=== PATIENT | female | born 1950 | race Caucasian/White ===

== ENCOUNTER 2019-07-23 00:42 | Inpatient (IN) | payer OTHER ==
[~2019-07-23] VITALS: Ht 157.5 cm; Wt 66.5 kg
[2019-07-23 00:46] VITALS: Ht 157.5 cm; Wt 66.5 kg
--- NOTE | 2019-07-23 01:02 | NUR ---
PT PRESENTS TO THE ED TODAY WITH C/C OF SOB. PT REPORTS THAT SHE'S BEEN "SICK" X1 WEEK, AND WOKE UP OUT OF HER SLEEP AROUND MIDNIGHT FEELING "VERY SHORT OF BREATH." PT REPORTS PRODUCTIVE COUGH WITH CLEAR, AND OCCASIONAL YELLOW MUCUS. PT DENIES ANY CP. SKIN IS WARM AND PINK. PT IS AWAKE AND ALERT, RESP E/U, SPEAKING IN CLEAR SENTENCES, PT CHANGED INTO GOWN AND PLACED ON MONITOR. WILL CONTINUE TO MONITOR. AWAITING MSE.
--- NOTE | 2019-07-23 01:07 | NUR ---
PT NOTED TO BE SATTING AROUND 91-92% ON RA. CHECKED ON PT. PT SITTING IN GURNEY, MOVING AROUND, TALKING TO DAUGHTER. PT SITTING STILL, GOOD WAVEFORM, STILL SATTING AROUND 91-92%. PLACED ON 2L VIA NC.
[2019-07-23 01:53] LABS: BASOPHIL % 0.8 % (0-2); PLATELET COUNT 329 x10^3mcL (130-400); RED CELL DISTRIBUTION WIDTH 13.3 % (11.5-14.5)
[2019-07-23 01:56] LABS: CALCIUM 8.6 mg/dL (8.5-10.1); CARBON DIOXIDE 21.8 mmol/L (21-32); CHLORIDE SERUM 101 mmol/L (98-107); CREATININE SERUM 0.8 mg/dL (0.6-1.0); GFR1 > 60 mL/min; GLUCOSE SERUM 159 mg/dL (74-106); POTASSIUM SERUM 3.6 mmol/L (3.5-5.1); SODIUM SERUM 136 mmol/L (136-145)
[2019-07-23 02:01] LABS: ALBUMIN 3.7 g/dL (3.4-5.0); ALKALINE PHOSPHATASE 113 U/L (46-116); ALT/SGPT 35 U/L (14-59); AST/SGOT 25 U/L (15-37); BILIRUBIN TOTAL 0.34 mg/dL (0.20-1.00); MAGNESIUM 1.9 mg/dL (1.8-2.4); TOTAL PROTEIN, SERUM 7.9 g/dL (6.4-8.2)
[2019-07-23 02:44] LABS: UA SPECIFIC GRAVITY 1.015 (1.005-1.035); microscopic required? YES; urine erythrocyte TRACE (NEGATIVE)
--- NOTE | 2019-07-23 04:00 | NUR ---
PT AMBULATING TO RESTROOM WITH STEADY GAIT AT THIS TIME
[2019-07-23 04:34] LABS: AMPHETAMINE QUAL UR NONE DETECTED (See below)
[2019-07-23 04:36] LABS: T3 TOTAL 1.09 ng/mL
[2019-07-23 04:44] LABS: CHOLESTEROL/HDL RATIO 4.8; FREE T4 1.11 ng/dL (0.76-1.46); FREE THYROXINE INDEX 3.1 ug/dL (1.4-4.5); T4(THYROXINE) 8.9 ug/dL (4.7-13.3)
--- NOTE | 2019-07-23 04:45 | NUR ---
REPORT GIVEN TO KYMBERLY FU. ALL QUESTIONS AND CONCERNS ADDRESSED AT THIS TIME
[2019-07-23 05:25] VITALS: BP 115/54
--- NOTE | 2019-07-23 05:34 | NUR ---
RECEIVED FROM ER, TRANSPORTED VIA [facility], AWAKE AND ALERT, ORIENTED TO NAME, PLACE, TIME AND SITUATION. SPEECH CLEAR AND APPROPRIATE. DENIES HAVING HEADACHE, CHEST PAIN, BACK PAIN, NAUSEA OR SHORTNESS OF BREATH AT THIS TIME. BREATHING EVEN AND UNLABORED ON 2LPM OF O2 VIA NC. SINUS RHYTHM WITH RIGHT BUNDLE BRANCH BLOCK NOTED ON TELE #34. SALINE LOCK TO LEFT FOREARM. INSTRUCTED ON USE OF CALL LIGHT TO CALL FOR ASSISTANCE, PLACED WITHIN EASY REACH. PT WAS ACCOMPANIED BY HER DAUGHTER.
--- NOTE | 2019-07-23 06:35 | NUR ---
EYES CLOSED, BREATHING EVEN AND UNLABORED ON 2LPM OF O2 VIA NC. CALL LIGHT WITHIN EASY REACH. REMAINS SINUS RHYTHM W/ RIGHT BUNDLE BRANCH BLOCK ON TELE, HR 77/MIN.
--- NOTE | 2019-07-23 07:08 | NUR ---
EYES CLOSED, BREATHING EVEN AND UNLABORED ON 2LPM OF O2 VIA NC. IN NO ACUTE DISTRESS. ENDORSED TO NURSE ERVIN
--- NOTE | 2019-07-23 07:20 | NUR ---
RECEIVED PT. IN BED A/A/O X3. NO SOB, NO N/V NOTED. PT. DENIES ANY PAIN AT THIS TIME. IV SITE NOTED TO [facility]. SCD TO BLE MAINTAINED. BED IN LOW POS., CALL LIGHT WITHIN REACH. SIDE RAILS UP X3.
[2019-07-23 08:37] LABS: BASOPHIL % 1.1 % (0-2); PLATELET COUNT 251 x10^3mcL (130-400); RED CELL DISTRIBUTION WIDTH 13.4 % (11.5-14.5)
[2019-07-23 08:40] LABS: CALCIUM 8.3 mg/dL (8.5-10.1); CARBON DIOXIDE 26.2 mmol/L (21-32); CHLORIDE SERUM 98 mmol/L (98-107); CREATININE SERUM 0.6 mg/dL (0.6-1.0); GFR1 > 60 mL/min; GLUCOSE SERUM 111 mg/dL (74-106); MAGNESIUM 1.7 mg/dL (1.8-2.4); PHOSPHOROUS 4.3 mg/dL (2.5-4.9); POTASSIUM SERUM 4.1 mmol/L (3.5-5.1); SODIUM SERUM 133 mmol/L (136-145)
[2019-07-23 08:41] VITALS: BP 116/64
[2019-07-23 14:00] VITALS: BP 116/56
--- NOTE | 2019-07-23 14:40 | NUR ---
CALLED AND REPORTED TROPONIN LEVEL (1.643) TO DR. FORREST. NO FURTHER ORDER RECEIVED AT THIS TIME.
[2019-07-23 17:33] VITALS: BP 112/54
--- NOTE | 2019-07-23 17:55 | NUR ---
REMAINS IN STABLE CONDITION AT THIS TIME. WILL CONTINUE TO MONITOR.
--- NOTE | 2019-07-23 19:30 | NUR ---
RECEIVED PT RESTING IN BED, FAMILY AT BEDSIDE. PT AOX4, REPORTING INTERMITTENT CANALES, WILL MEDICATE PER ORDER. TELE # 34 ST, DENIES CP AT THIS TIME. PT REPORTS SOB W/ EXERTION, ELEVATED TROPS, LATEST= 1.643, PT ON LOVENOX 40MG SQ. 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 RESP EVEN AND UNLABORED ON AND OFF 2LNC. PT USES O2 WHEN FEELING SOB ONLY. PT DENIES O2 AT HOME. PT ABD SOFT, FLAT, DENIES PAIN. VOIDS FREELY. BRP. AMB. SKIN INTACT. IV SITE TO THE LFA, SALINE LOCKED AT THIS TIME. PT ON LASIX 40 IVP. ALL COMFORT AND SAFETY MEASURES PROVIDED FOR, CALL LIGHT WITHIN REACH, BED IN LOWEST POSITION, WILL CONTINUE TO MONITOR.
[2019-07-23 21:16] VITALS: BP 112/55
[2019-07-24 05:03] VITALS: BP 111/59
--- NOTE | 2019-07-24 05:10 | NUR ---
PT RESTED IN INTERVALS DURING SHIFT, DENIES C/O CHECT PAIN DURING SHIFT. PT REMAINS AOX4, DENIES CANALES/DIZZINESS THIS AM. IV SITE REMAINS PATENT TO [facility], SALINE LOCKED. ALL COMFORT AND SAFETY MEASURES PROVIDED FOR, CALL LIGHT WITHIN REACH, BED INLOWEST POSITION, WILL CONTINUE TO MONITOR.
[2019-07-24 07:00] LABS: BASOPHIL % 0.5 % (0-2); PLATELET COUNT 260 x10^3mcL (130-400); RED CELL DISTRIBUTION WIDTH 13.1 % (11.5-14.5)
[2019-07-24 07:04] LABS: CALCIUM 8.7 mg/dL (8.5-10.1); CARBON DIOXIDE 28.8 mmol/L (21-32); CHLORIDE SERUM 100 mmol/L (98-107); CREATININE SERUM 0.7 mg/dL (0.6-1.0); GFR1 > 60 mL/min; GLUCOSE SERUM 106 mg/dL (74-106); MAGNESIUM 2.2 mg/dL (1.8-2.4); PHOSPHOROUS 4.1 mg/dL (2.5-4.9); SODIUM SERUM 134 mmol/L (136-145)
--- NOTE | 2019-07-24 07:10 | NUR ---
RECEIVED PATIENT AWAKE/ALERT IN BED NO DISTRESS NOTED, DENIES CHEST PAIN. TELE #34 SR, BBB AND HR 70 NOTED. IV TO LFA INTACT AND SL NOTED. NO ERYTHEMA NOTED. POC DISCUSS. CALL LIGHT WITHIN REACH.
--- NOTE | 2019-07-24 09:20 | NUR ---
PATIENT WATCHING TV SHOWS, NO COMPLAIN. ALL DUE MEDS ADMINISTERED, PATIENT TOLERATED. LOVENOX INJECTED TO LLQ. NEEDS MET. CONT TO MONITOR.
[2019-07-24 09:24] VITALS: BP 113/62
[2019-07-24 13:36] VITALS: BP 106/54
--- NOTE | 2019-07-24 15:38 | NUR ---
PATIENT SAT UP IN BED NO COMPLAIN, DR. SANCHEZ SEEN PATIENT WITH NEW MEDS ORDERS. NEEDS MET. CONT TO MONITOR.
--- NOTE | 2019-07-24 16:27 | NUR ---
PATIENT RESTING IN BED WATCHING TV, NO C/O PAIN. LASIX AND COREG ADMINISTERED. IV TO LFA INTACT AND PATENT. NO ERYTHEMA NOTED. NEEDS MET. CONT TO MONITOR.
[2019-07-24 17:05] VITALS: BP 103/53
--- NOTE | 2019-07-24 18:44 | NUR ---
PATIENT RESTING IN BED AWAKE/ALERT, NO C/O PAIN. NEEDS ET. CONT TO MONITOR.
[2019-07-24 20:36] VITALS: BP 93/59
[2019-07-24 20:46] VITALS: BP 99/47
[2019-07-25 05:32] VITALS: BP 126/63
--- NOTE | 2019-07-25 07:20 | NUR ---
PT IS AAOX4. TELE [address] READING NSR WITH BBB. PT DENIES C/P AND PRESSURE AT THIS TIME. O2 N/C HAS BEEN REMOVED TO ASSESS HOW PT TOLERATES R/A. NO SOB OR RESP DISTRESS AT THIS TIME. O2 SAT 94%. SKIN CDI. NO EDEMA. IV CAHT N/S LOCKED TO LFA. SITE WNL. NO S/S OF INFECTION NOTED. CALL LIGHT WITHIN REACH. BED IN LOWEST POSITION. WILL CONTINUE TO MONITOR.
[2019-07-25 07:21] VITALS: BP 116/58
--- NOTE | 2019-07-25 09:05 | NUR ---
EUGENIA GERMAN NP MET WITH PT AND DISCUSSED POC. PT IS TO BE EVALUATED BY DR. SANCHEZ. THEN DISCHARGE WILL BE DECIDED. PT AGREED WITH POC.
--- NOTE | 2019-07-25 09:26 | NUR ---
B/P 116/58, HR 69. PT OFF N/C AT THIS TIME. WILL CONTINUE TO MONITOR RESPIRATORY STATUS. SCHEDULED MEDS GIVEN AND TOLERATED WELL. PT DENIES C/P, PRESSURE AND PALPITATIONS. CALL LIGHT WITHIN REACH.
[2019-07-25 11:30] VITALS: BP 98/51
--- NOTE | 2019-07-25 11:30 | NUR ---
PT UP AMBULATING UNIT 3 TIMES ON R/A. O2 ST 96% ON R/A. RESP EVEN AND UNLABORED. NO SOB. PT BACK IN BED. DENIES PAIN. CALL LIGHT WITHIN REACH.
--- NOTE | 2019-07-25 13:45 | NUR ---
PT SITTING UP AT BEDSIDE VISITING WITH DAUGHTER. DENIES C/P AND DISCOMFORT. RESP EVEN AND UNLABORED. TOLERATING R/A AT 02 SAT 95%.
[2019-07-25 15:18] VITALS: BP 105/61
--- NOTE | 2019-07-25 16:24 | NUR ---
PT IS SITTING UP AT BEDSIDE. RESP EVEN AND UNLABORED. NO RESP DISTRESS NOTED. B/P 105/61 (71), 72. DENIES C/P AND PRESSURE. CALL LIGHT WITHIN REACH.
--- NOTE | 2019-07-25 18:11 | NUR ---
PT HAD 3O SECOND RUN OF VTACH. PT STATES SHE WAS WALKING IN HALLWAY AND DID NOT FEEL ANYTHING. REPORTED EPISODE TO DR. SANCHEZ, HE STATED THAT WE NEED TO CONTINUE TO MONITOR PT ON TELE. NO NEW ORDERS. PT MADE AWARE. PT IS AAOX4. RESP EVEN AND UNLABORED. TELE [address] READING NSR WITH BBB AT THIS TIME. IV CATH TO LFA INTACT, SITE WNL, COVERED WITH CDI OCCLUSIVE DRESSING. NO S/S OF INFECTION OR INFILTRATION. PT DENIES PAIN. CALL LIGHT WITHIN REACH. BED IN LOW POSITION. WILL ENDORSE ALL CARE TO NOC RN.
--- NOTE | 2019-07-25 19:15 | NUR ---
PT RECEIVED A/O X4, ABLE TO MAKE NEEDS KNOWN. TELE #34, DENIES ANY CP/PRESSURE. PULSES PALPABLE, NO EDEMA PRESENT. BREATHING IS EVEN AND UNLABORED ON RA, NO RESP DISTRESS NOTED. ABD SOFT AND NONDISTENDED, DENIES N/V. VOIDS FREELY, BRP. AMBULATORY W/ STEADY GAIT. SKIN IS WARM AND DRY, INTACT. PT DENIES HAVING ANY PAIN AT THIS TIME. SL TO LFA, INTACT. NO ACUTE DISTRESS NOTED. BED IN LOWEST SETTING, SIDE RAILS UP X2, CALL LIGHT WITHIN REACH. WILL CONT TO MONITOR.
[2019-07-25 21:37] VITALS: BP 138/45
--- NOTE | 2019-07-26 05:43 | NUR ---
PT SLEPT WELL THROUGHOUT THE EVENING. BREATHING IS EVEN AND UNLABORED, NO RESP DISTRESS NOTED. PT DENIES HAVING ANY PAIN AT THIS TIME. SL TO LFA INTACT. NO ACUTE CHANGES ENCOUNTERED DURING SHIFT. PT COMPLIANT WITH NURSING CARE. ALL NEEDS MET AND ANTICIPTED. CALL LIGHT WITHIN REACH. WILL ENDORSE CARE TO AM NURSE.
[2019-07-26 06:11] VITALS: BP 119/55
[2019-07-26 06:45] LABS: CALCIUM 8.4 mg/dL (8.5-10.1); CARBON DIOXIDE 27.8 mmol/L (21-32); CHLORIDE SERUM 97 mmol/L (98-107); CREATININE SERUM 0.7 mg/dL (0.6-1.0); GFR1 > 60 mL/min; GLUCOSE SERUM 100 mg/dL (74-106); POTASSIUM SERUM 3.7 mmol/L (3.5-5.1); SODIUM SERUM 132 mmol/L (136-145)
--- NOTE | 2019-07-26 07:30 | NUR ---
RECEIVED PATIENT. IN BED, EATING BREAKFAST. NO ACUTE RESP DISTRESS NOTED. REMAINS ON ROOM AIR. NO SOB NOTED. NO C/O PAIN AT THIS TIME. IV TO LFA INTACT , NO INFILTRATION NOTED, SALINE LOCK. SAFETY PRECAUTION IN PLACE. SCD IN PLACE. CALL LIGHT WITHIN REACH. WILL CONTINUE TO MONITOR.
[2019-07-26 07:38] LABS: BASOPHIL % 0.4 % (0-2); PLATELET COUNT 266 x10^3mcL (130-400); RED CELL DISTRIBUTION WIDTH 13.5 % (11.5-14.5)
[2019-07-26 08:54] VITALS: BP 119/52
--- NOTE | 2019-07-26 09:15 | NUR ---
PATIENT IN BED, WATCHING TV. EDUCATED ABOUT MEDICATIONS AND PURPOSE. NO ACUTE RESP DISTRESS NOTED AT THIS TIME. REMAINS ON ROOM AIR. NO SOB NOTED. NO COMPLAINTS OR CHEST PAIN OR PRESSURE. SAFETY PRECAUTION IN PLACE. CALL LIGHT WITHIN REACH. WILL CONTINUE TO MONITOR.
[2019-07-26 12:30] VITALS: BP 109/54
--- NOTE | 2019-07-26 12:40 | NUR ---
PATIENT IN BED, EATING LUNCH. NO ACUTE RESP DISTRESS NOTED AT THIS TIME. REMAINS ON ROOM AIR. NO SOB NOTED. NO COMPLAINTS OR CHEST PAIN OR PRESSURE. SAFETY PRECAUTION IN PLACE. CALL LIGHT WITHIN REACH. WILL CONTINUE TO MONITOR.
--- NOTE | 2019-07-26 15:05 | NUR ---
PATIENT IN BED, WATCHING TV. LIST OF MEDICATION GIVEN REQUESTED BY PATIENT WITH DOSE AND FREQUENCY LISTED. NO ACUTE RESP DISTRESS NOTED AT THIS TIME. REMAINS ON ROOM AIR. NO SOB NOTED. NO COMPLAINTS OR CHEST PAIN OR PRESSURE. SAFETY PRECAUTION IN PLACE. CALL LIGHT WITHIN REACH. WILL CONTINUE TO MONITOR.
[2019-07-26 16:54] VITALS: BP 109/61
--- NOTE | 2019-07-26 17:30 | NUR ---
PATIENT IN BED, EATING DINNER. PATIENT PLACED ON CARDIAC DIET ORDERED BY JULIANN DUMONT. PATIENT MADE AWARE. NO ACUTE RESP DISTRESS NOTED AT THIS TIME. REMAINS ON ROOM AIR. NO SOB NOTED. NO COMPLAINTS OR CHEST PAIN OR PRESSURE. IV INTACT AND PATENT. NO REDNESS OR INFILTRATION NOTED. SAFETY PRECAUTION IN PLACE. CALL LIGHT WITHIN REACH. WILL CONTINUE TO MONITOR.
--- NOTE | 2019-07-26 18:20 | NUR ---
PATIENT IN BED, WATCHING TV. NO ACUTE RESP DISTRESS NOTED AT THIS TIME. REMAINS ON ROOM AIR. NO SOB NOTED. NO COMPLAINTS OR CHEST PAIN OR PRESSURE. SAFETY PRECAUTION IN PLACE. CALL LIGHT WITHIN REACH. WILL ENDORSE CARE TO ASSET ADMINISTRATOR NURSE.
[2019-07-26 20:20] VITALS: BP 109/50
--- NOTE | 2019-07-26 20:53 | NUR ---
Pt. received from day shift, currently resting in bed, awake and alert, able to make needs known. Reeducated pt. on possible d/c plan for tomorrow since she was cleared by Dr. Santana, explained to her what MD stated in Progress notes. At this time, pt. has no c/o of h/a, n/v, SOB, chest pain, pain, or s/o distress. Pt. stable, safety in check with call light placed within reach, since pt. is ambulatory w/o deficit, educated pt. on when and how to use call light system, bed set at lowest position, will continue to monitor.
--- NOTE | 2019-07-27 01:30 | NUR ---
Pt. currently resting in bed, easily arousable with verbal stimuli. pt. at this time has no c/o of pain, c/p, h/a, n/v, sob, or s/o distress. Pt. stable at this time, medications given as ordered, will continue to monitor.
[2019-07-27 04:47] VITALS: BP 113/60
[2019-07-27 06:41] LABS: CALCIUM 8.5 mg/dL (8.5-10.1); CARBON DIOXIDE 28.2 mmol/L (21-32); CHLORIDE SERUM 99 mmol/L (98-107); CREATININE SERUM 0.7 mg/dL (0.6-1.0); GFR1 > 60 mL/min; GLUCOSE SERUM 95 mg/dL (74-106); POTASSIUM SERUM 3.9 mmol/L (3.5-5.1); SODIUM SERUM 134 mmol/L (136-145)
--- NOTE | 2019-07-27 06:48 | NUR ---
Pt. asleep for most of the night, no c/o of pain, h/a, n/v, cheest pain, or SOB. Will continue to monitor pt. and endorse to next shift RN.
[2019-07-27 06:50] LABS: BASOPHIL % 0.4 % (0-2); PLATELET COUNT 259 x10^3mcL (130-400); RED CELL DISTRIBUTION WIDTH 13.6 % (11.5-14.5)
--- NOTE | 2019-07-27 07:05 | NUR ---
RECIEVED PT RESTING IN BED WITH NO C/O PAIN, DISTRESS, OR SOB. A/O X4. DENIES CP OR PRESSURE. LUNGS CTAB. SKIN CDI. LFA IV CDI, AND PATENT. SAFETY PRECAUTIONS IN PLACE, CALL LIGHT WITHIN REACH, WILL MONITOR.
[2019-07-27 08:37] VITALS: BP 114/50
[2019-07-27] MEDS ORDERED: ZES5 PO (09:09)
[2019-07-27] MEDS ORDERED: COR3 PO (09:09)
[2019-07-27] MEDS ORDERED: ATORVASTATIN CA40 M1 PO (09:09)
[2019-07-27] MEDS ORDERED: BAY PO (09:10)
[2019-07-27 11:17] VITALS: BP 114/47
[2019-07-27 11:56] VITALS: BP 119/55
--- NOTE | 2019-07-27 12:25 | NUR ---
PT STABLE WITH NO C/O ANY PAIN OR DISTRESS. SAFETY PRECAUTIONS IN PLACE, CALL LIGHT WITHIN REACH, WILL MONITOR.
--- NOTE | 2019-07-27 13:59 | NUR ---
PT STABLE TO DISCHARGE PER MD ORDER. ALL CARES TOLERATED WELL. NO PAIN OR DISTRESS NOTED. ALL DISCHARGE INSTRUCTIONS, EDUCATION, AND PRESCRIPTIONS GIVEN TO PT AND SHE VERBALIZES UNDERSTANDING. IV REMOVED WITH CATHETER INTACT, NO REDNESS OR INFLAMMATION NOTED TO SITE. ID BAND REMOVED. PT ESCORTED DOWN TO LOBBY VIA WC BY [facility] [employer] AND DAUGHTER AT SIDE. ALL PERSONAL BELONGINGS IN HAND.
== END 2019-07-27 14:02 | disposition home or self-care (01) | DRG 280 ==
LOC: ED 00:42 → DU 03:44
PROVIDERS: Emergency Medicine; General Practice; ADMIT Family Medicine
DX: I11.0 Hypertensive heart disease with heart failure (principal); I21.A1 Myocardial infarction type 2; I50.21 Acute systolic (congestive) heart failure; I42.0 Dilated cardiomyopathy; I08.0 Rheumatic disorders of both mitral and aortic valves; E78.5 Hyperlipidemia, unspecified
CPT/HCPCS: 83880; 84439; 87804; G0378; J0696; J1650; J1940; Q0092